=== PATIENT | female | born 1980 | race American Indian/Alaskan Native ===

== ENCOUNTER 2017-04-20 18:02 | Emergency (ER) | payer SELFPAY ==
--- NOTE | 2017-04-20 18:04 | ED PDOC ---
Arrival/HPI - General Time Seen by Provider: 04/20/17 18:03 Historian: Patient - History of Present Illness Narrative History of Present Illness (Text): 04/20/17 18:03 37 y/o female, no significant pmh, nkda, c/o rt. sided facial pain x 2-3 weeks with no fall or trauma. Aching pain, aggravated by bending forward, no change in vision, no painful movement of eye, no dizziness, no night sweat, no palpitation, no other medical or psychological complaints. Past Medical History - Provider Review Nursing Documentation Reviewed: Yes Family/Social History - Physician Review Nursing Documentation Reviewed: Yes Family/Social History: Unknown Family HX Allergies/Home Meds Allergies/Adverse Reactions: Allergies No Known Allergies Allergy (Verified 04/20/17 18:27) Home Medications: Home Meds Medication Instructions Recorded Confirmed Guaifenesin [Mucinex] 600 mg PO BID 04/20/17 04/20/17 Review of Systems - Review of Systems Constitutional: absent: Fatigue, Fevers Eyes: absent: Vision Changes ENT: Other (facial pain). absent: Hearing Changes Respiratory: absent: SOB, Cough, Sputum Cardiovascular: absent: Chest Pain, Palpitations Gastrointestinal: absent: Abdominal Pain, Nausea, Vomiting Musculoskeletal: absent: Arthralgias, Back Pain Skin: absent: Rash, Pruritis Neurological: absent: Headache, Dizziness Psychiatric: absent: Anxiety, Depression Physical Exam Vital Signs Reviewed: Yes Vital Signs Temp Pulse Resp BP Pulse Ox 04/20/17 19:06 98.0 F 70 17 99 04/20/17 18:22 98.0 F 67 16 112/74 98 Temperature: Afebrile Blood Pressure: Normal Pulse: Regular Respiratory Rate: Normal Appearance: Positive for: Well-Appearing, Non-Toxic, Comfortable Pain Distress: Mild Mental Status: Positive for: Alert and Oriented X 3 - Systems Exam Head: Present: Atraumatic, Normocephalic, Other (+ttp on the rt. maxillary sinus region, no facial cellulitis or streaking, no ulcer. ) Pupils: Present: PERRL Extroacular Muscles: Present: EOMI Conjunctiva: Present: Normal Mouth: Present: Moist Mucous Membranes Nose (External): Present: Atraumatic. No: Abrasion, Contusion Nose (Internal): Present: Normal Inspection, No Active Bleeding. No: Rhinorrhea , Septal Hematoma, Epistaxis Neck: Present: Normal Range of Motion Respiratory/Chest: Present: Clear to Auscultation, Good Air Exchange. No: Respiratory Distress, Accessory Muscle Use, Wheezes, Decreased Breath Sounds, Rales, Retracting, Rhonchi Cardiovascular: Present: Regular Rate and Rhythm, Normal S1, S2. No: Murmurs Abdomen: Present: Normal Bowel Sounds. No: Tenderness, Distention, Peritoneal Signs Back: Present: Normal Inspection Upper Extremity: Present: Normal Inspection. No: Cyanosis, Edema Lower Extremity: Present: Normal Inspection. No: Edema Neurological: Present: GCS=15, Speech Normal, Motor Func Grossly Intact, Gait Normal, Memory Normal Skin: Present: Warm, Dry, Normal Color. No: Rashes Psychiatric: Present: Alert, Oriented x 3, Normal Insight, Normal Concentration Medical Decision Making ED Course and Treatment: 04/20/17 19:05 -Toradol and augmentin 04/20/17 19:33 -Urine hcg negative -Pt. feels better -Discharge home with augmentin, claritin d24, flonase, motrin, bed rest, follow up with your own pmd and ENT within 2 days, return to the ER for any new or worsening signs or symptoms. - Medication Orders Current Medication Orders: Discontinued Medications Amoxicillin/Clavulanate Potassium (Augmentin 875 Mg-125 Mg Tab) 1 tab PO STAT STA PRN Reason: Protocol Stop: 04/20/17 19:03 Last Admin: 04/20/17 19:21 Dose: 1 tab Ketorolac Tromethamine (Toradol) 60 mg IM STAT STA Stop: 04/20/17 19:03 Last Admin: 04/20/17 19:21 Dose: 60 mg MAR Pain Assessment Document 04/20/17 19:21 [email or web address] (Rec: 04/20/17 19:22 [email or web address] [email or web address]) Pain Reassessment Is this a pain reassessment? No Sleep Is patient sleeping during reassessment? No Presence of Pain Presence of Pain Yes Pain Scale Used Pain Scale Used Numeric Location Pain Location Body Site Face Description Description Constant Intensity of Pain at present 4 Pain Behavior Facial Grimacing Aggravating Factors Changing Position Alleviating Factors/Management Medication Techniques Alleviating Factors Medication IM Administration Charges Document 04/20/17 19:21 [email or web address] (Rec: 04/20/17 19:22 [email or web address] [id number] [email or web address]) Injection Site MAR Injection Site Left Gluteus Adalid Charges for Administration # of IM Administrations 1 - PA / [employer] / Resident Statement / has reviewed & agrees with the documentation as recorded. Disposition/Present on Arrival - Present on Arrival Any Indicators Present on Arrival: No History of DVT/PE: No History of Uncontrolled Diabetes: No Urinary Catheter: No History of Decub. Ulcer: No - Disposition Have Diagnosis and Disposition been Completed?: Yes Diagnosis: Sinusitis Disposition: HOME/ ROUTINE Disposition Time: 19:06 Patient Plan: Discharge Patient Problems: Current Active Problems Problem Status Onset Sinusitis Acute Condition: GOOD Additional Instructions: -Discharge home with augmentin, claritin d24, flonase, motrin, bed rest, follow up with your own pmd and ENT within 2 days, return to the ER for any new or worsening signs or symptoms. Prescriptions: Amoxicillin/Clavulanate [Augmentin 875 MG-125 MG] 1 tab PO BID #14 tab Fluticasone Propionate [Flonase Allergy Relief] 1 spray NS DAILY #1 in Ibuprofen [Motrin] 600 mg PO QID #30 tab Loratadine/Pseudoephedrine [Claritin-D 24 Hour Tablet] 1 each PO DAILY #5 tab.er.24h Referrals: Gavin Pavon MD [Primary Care Provider] - Follow up with primary Shin Andujar DO [Staff Provider] - Follow up with primary Forms: WORK NOTE
[2017-04-20 18:28] VITALS: BP 112/74; TEMP 98
[2017-04-20] MEDS ORDERED: Amoxicillin-Clav 875-125 mg Tab PO STA (19:02)
[2017-04-20 19:06] VITALS: PULSE 70
[2017-04-20 19:45] VITALS: RESP 18; O2SAT 97
== END 2017-04-20 19:45 | disposition home or self-care (01) ==
LOC: MERGE 18:02 → ED 18:02
DX: J32.9 Chronic sinusitis, unspecified (principal)
CPT/HCPCS: 96372; 99283; J1885